=== PATIENT | male | born 1965 | race Caucasian/White ===

== ENCOUNTER 2025-06-17 14:58 | Outpatient (AMB) | payer BC, SELFPAY ==
--- NOTE | 2025-06-17 15:05 | MHC.PC.OV ---
Vital Signs 06/17/25 15:07 Height 5 ft 10.47 in Weight 202 lb BMI 28.6 BP 125/59 L Blood Pressure Location Rt brachial Position Sitting Respiration 14 Pulse 86 Pulse Source Pulse Oximeter Temp 97.7 F Temp Source Temporal Artery Scan Pulse Oximetry (%) 96 Oxygen Delivery Method Room Air Intake Visit Reasons: [facility]/ Dr. Obrien Emergency Technician Required: No Accompanied by: Self / Same As Patient Allergies No Known Allergies Allergy (Verified 06/17/25 15:06) Tobacco use date assessed: 06/17/25 Dental Screening Dental Screen Date: 06/17/25 Did you have a dental visit in the last 12 months?: Yes Did you have a dental problem in the last 6 months where you did not have access to dental care?: No Was dental information given to patient?: Patient has dentist HPI HPI Comments History of Present Illness Details History of Present Illness - The patient is a 59-year-old male presenting to [facility] as he is transferring from another provider, and he denies any current health concerns. - The patient has a history of melanoma on his arm, which was treated with surgery including lymph node removal. - The melanoma had not spread, and he requires a referral for his six-month dermatology follow-up as his previous one with an insurance change. - He reports a history of erectile dysfunction and requests a new prescription for medication. - He also has a history of anxiety, for which he has Ativan, but he has not taken it in approximately two months. - For health maintenance, the patient's last blood work was a year ago or more. - His last colonoscopy was on July 28, 2016, when he was 50 years old. - He has never received a flu shot. - He is a non-smoker. - Past surgical history includes cataract surgery last year, and he no longer wears glasses. - He also had tubes placed in his ears as a child and a hole put in his eardrum, resulting in slightly diminished hearing in that ear without significant functional impact. 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 - Tobacco Use: The patient is a non-smoker. Results - Tests and Diagnostics: Colonoscopy performed on July 28, 2016. [facility] Medical History (Updated 06/17/25 @ 15:31 by Nikos Oneill MD) Malignant melanoma Surgical History History of colonoscopy (~07/28/16) Family History (Updated 06/17/25 @ 15:14 by EMILIA Gomez) Father Melanoma Mother Diabetes Social History (Updated 06/17/25 @ 15:15 by EMILIA Gomez) Housing: House Alcohol intake: current Alcohol intake frequency: a few times a week Patient Tobacco Use Status: Never used Tobacco service: No Current occupational status: employed Cognitive needs: No Hearing needs: No Vision needs: No Questionnaire PHQ-9 Over the last 2 weeks, how often have you been bothered by any of the following problems? 1. Little interest or pleasure in doing things: not at all 2. Feeling down, depressed, or hopeless: not at all 3. Trouble falling or staying asleep, or sleeping too much: not at all 4. Feeling tired or having little energy: not at all 5. Poor appetite or overeating: not at all 6. Feeling bad about yourself - or that you are a failure or have let yourself or your family down: not at all 7. Trouble concentrating on things, such as reading the newspaper or watching television: not at all 8. Moving or speaking so slowly that other people could have noticed. Or the opposite - being so fidgety or restless that you have been moving around a lot more than usual: not at all 9. Thoughts that you would be better off or of hurting yourself in some way: not at all Total score: 0 Source: Developed by Drs. Carlos Artis, Aubrie Sellers, Emery Cuba and colleagues, with an educational clare from [employer]. Thrive Questionnaire Date Thrive assessed: 06/17/25 I am a: Patient What is your living situation today?: I have a steady place to live Within the past 12 months, did the food you bought not last and you didn't have the money to get more?: Never true Within the past 12 months, did you worry whether your food would run out before you got money to buy more?: Never true Do you have trouble paying for medicines?: No Do you have trouble getting transportation to medical appointments?: No Do you have trouble paying your heating and electricity bill?: No Do you have trouble taking care of your child, family member or friend?: No Do you have trouble with day-to-day activities such as bathing, preparing meals, shopping, managing finances, etc.?: No Are you currently unemployed and looking for a job?: No Are you interested in more education?: No Please select the resources that you would like help with: None THRIVE Score: 0 AUDIT C Alcohol Use Questionnaire (AUDIT-C) 1. How often do you have a drink containing alcohol?: 2-3 times a week 2. How many drinks containing alcohol do you have on a typical day when you are drinking?: 1 or 2 3. How often do you have six or more drinks on one occasion?: Never Total Score: 3 AMY-7 AMB Questionnaire AMY-7 Date AMY - 7 assessed: 06/17/25 Feeling nervous, anxious, or on edge: 0 = Not at all Not being able to stop or control worryin = Not at all Worrying too much about different things: 0 = Not at all Trouble relaxin = Not at all Being so restless that it is hard to sit still: 0 = Not at all Becoming easily annoyed or irritable: 0 = Not at all Feeling afraid as if something awful might happen: 0 = Not at all Total AMY-7 score (0-4 normal; 5-9 mild; 10-14 moderate; 15-21 severe): 0 Source: Developed by Drs. Carlos Artis, Aubrie Sellers, Emery Cuba and colleagues, with an educational clare from [employer]. Review of Systems Narrative Review of Systems - General: Denies any health concerns. - Eyes: Reports history of cataract surgery. Denies halos while driving. - Ears: Reports slightly decreased hearing in one ear. Denies functional impairment and can use the phone in both ears. - Genitourinary: Reports erectile dysfunction. Denies nocturia or other urinary issues. - Neurological: Reports good sleep. Physical exam (Primary Care) Vital Signs: Last Vital Signs Temp 97.7 F 06/17/25 15:07 Pulse 86 06/17/25 15:07 Resp 14 06/17/25 15:07 BP 125/59 L 06/17/25 15:07 Pulse Ox 96 06/17/25 15:07 Oxygen Delivery Method Room Air 06/17/25 15:07 BMI result Body Mass Index 28.6 Tobacco/Smoking Status: Tobacco use Status Tobacco use date assessed 06/17/25 06/17/25 15:15 Patient Tobacco Use Status Never used Tobacco 06/17/25 15:15 PHQ-9: PHQ-9 Score PHQ-9: Total score 0 06/17/25 15:15 Thrive Assessment: Date of Thrive Assessment Date Thrive assessed 06/17/25 06/17/25 15:15 Narrative Physical Exam General: Cooperative and healthy appearing Nutritional Appearance: Well nourished Orientation/consciousness: Patient oriented x3 Limitations: No limitations Head: Normal to inspection General: Appearance normal, both eyes and all related structures Neck: Normal visual inspection Chest: Normal palpation of entire chest wall Respiratory: Normal respiratory effort Neurology: Patient oriented x3 Office Procedures Flu Questionnaire Does the patient have a severe egg allergy?: No Does the patient have severe life threatening allergies?: No Does the patient have a fever or illness today?: No Has the patient ever had Guillain-Montfort Syndrome?: No Has the patient ever had any past reaction to a flu shot?: No Immunizations Fluarix [id number] (PF) 45 mcg (15 mcg x 3)/0.5 mL IM syringe Performing Provider: Nikos Oneill MD [facility] Documented (not given) by: EMILIA Gomez on 06/17/25 15:15 Reason Not Given: Patient Refused Coding Level of Care Code New Pt Level 4 (82016) Complex EM visit Add On G2211 Diagnoses Malignant melanoma C43.9 Assessment & Plan Assessment & Plan (1) Malignant melanoma: Code(s): C43.9 - Malignant melanoma of skin, unspecified Category: Medical Plan: History of Present Illness - The patient is a 59-year-old male presenting to [facility] as he is transferring from another provider, and he denies any current health concerns. - The patient has a history of melanoma on his arm, which was treated with surgery including lymph node removal. - The melanoma had not spread, and he requires a referral for his six-month dermatology follow-up as his previous one with an insurance change. - He reports a history of erectile dysfunction and requests a new prescription for medication. - He also has a history of anxiety, for which he has Ativan, but he has not taken it in approximately two months. - For health maintenance, the patient's last blood work was a year ago or more. - His last colonoscopy was on July 28, 2016, when he was 50 years old. - He has never received a flu shot. - He is a non-smoker. - Past surgical history includes cataract surgery last year, and he no longer wears glasses. - He also had tubes placed in his ears as a child and a hole put in his eardrum, resulting in slightly diminished hearing in that ear without significant functional impact. 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 - Tobacco Use: The patient is a non-smoker. Review of Systems - General: Denies any health concerns. - Eyes: Reports history of cataract surgery. Denies halos while driving. - Ears: Reports slightly decreased hearing in one ear. Denies functional impairment and can use the phone in both ears. - Genitourinary: Reports erectile dysfunction. Denies nocturia or other urinary issues. - Neurological: Reports good sleep. Physical Exam General: Cooperative and healthy appearing Nutritional Appearance: Well nourished Orientation/consciousness: Patient oriented x3 Limitations: No limitations Head: Normal to inspection General: Appearance normal, both eyes and all related structures Neck: Normal visual inspection Chest: Normal palpation of entire chest wall Respiratory: Normal respiratory effort Neurology: Patient oriented x3 Results - Tests and Diagnostics: Colonoscopy performed on July 28, 2016. Plan - Will order fasting blood work, to include a cholesterol panel. - Will provide a referral to [facility] in [place] for continued surveillance of his history of melanoma. - Will prescribe sildenafil 50 mg, 8 tablets per month, to be taken one hour prior to sexual activity as needed for erectile dysfunction. - Patient advised he is due for a screening colonoscopy. - The patient was advised to continue to hold taking Ativan for anxiety as he has not needed it. - Will follow up with the patient via phone call to discuss lab results. - Plan to follow up in the office in six months. Discussion Notes I discussed with the patient the plan for his care, including routine health maintenance. I explained the need for fasting blood work to obtain an accurate cholesterol level and provided instructions on where to complete this. We discussed his request for a referral to dermatology for his melanoma history and a new prescription for erectile dysfunction, both of which I will provide. I will call him with his blood work results and plan to see him for a follow-up visit in six months. Patient Instructions - Please go to either [facility] or [facility] to have your blood drawn. - This needs to be a fasting test, so do not eat or drink anything after midnight the night before the test. - You do not need an appointment for the blood test. - A referral will be sent to [facility] for your follow-up appointment. - A new prescription for sildenafil 50 mg (generic Viagra) will be sent to your pharmacy. Take one pill one hour before sexual activity as needed. Your insurance will likely cover 8 pills per month. - We will call you with your blood test results. - Please schedule a follow-up appointment in six months. Plan Plan - Will order fasting blood work, to include a cholesterol panel. - Will provide a referral to [facility] in [place] for continued surveillance of his history of melanoma. - Will prescribe sildenafil 50 mg, 8 tablets per month, to be taken one hour prior to sexual activity as needed for erectile dysfunction. - Patient advised he is due for a screening colonoscopy. - The patient was advised to continue to hold taking Ativan for anxiety as he has not needed it. - Will follow up with the patient via phone call to discuss lab results. - Plan to follow up in the office in six months. Discussion Notes I discussed with the patient the plan for his care, including routine health maintenance. I explained the need for fasting blood work to obtain an accurate cholesterol level and provided instructions on where to complete this. We discussed his request for a referral to dermatology for his melanoma history and a new prescription for erectile dysfunction, both of which I will provide. I will call him with his blood work results and plan to see him for a follow-up visit in six months. Patient Instructions - Please go to either [facility] or [facility] to have your blood drawn. - This needs to be a fasting test, so do not eat or drink anything after midnight the night before the test. - You do not need an appointment for the blood test. - A referral will be sent to [facility] for your follow-up appointment. - A new prescription for sildenafil 50 mg (generic Viagra) will be sent to your pharmacy. Take one pill one hour before sexual activity as needed. Your insurance will likely cover 8 pills per month. - We will call you with your blood test results. - Please schedule a follow-up appointment in six months. Orders: Orders Basic Metabolic Panel Today E78.5 - Hyperlipidemia, unspecified Complete Blood Count no Diff Today E78.5 - Hyperlipidemia, unspecified Thyroid Stimulating Hormone Today E78.5 - Hyperlipidemia, unspecified UA and rflx microscopic Today E78.5 - Hyperlipidemia, unspecified Prostate Specific Antigen Scr Today E78.5 - Hyperlipidemia, unspecified Influenza [id number] Immunization Today Z23 - Encounter for immunization Lipid Panel Today E78.5 - Hyperlipidemia, unspecified Liver Panel Today E78.5 - Hyperlipidemia, unspecified Referrals Dermatology Referral C43.9 - Malignant melanoma of skin, unspecified Medications: New sildenafil (Viagra) administer 30 minutes to 4 hours before activity 50 mg PO DAILY PRN 8 tabs 1RF sexual activity
[2025-06-17 15:07] VITALS: BP 125/59; PULSE 86; RESP 14; TEMP 36.5; O2SAT 96; BMI 28.6
== END 2025-06-17 15:35 | disposition home or self-care (01) ==
LOC: HO.HMCSH 14:58
PROVIDERS: PCP Internal Medicine; Visit Provider Internal Medicine
DX: Z23 Encounter for immunization (principal); C43.9 Malignant melanoma of skin, unspecified

== ENCOUNTER → 2025-06-17 14:58 | Outpatient (BNVA) | payer BC, SELFPAY | PROVIDERS: PCP Internal Medicine; Visit Provider Internal Medicine | DX: N52.9 Male erectile dysfunction, unspecified (principal); F41.9 Anxiety disorder, unspecified; E78.5 Hyperlipidemia, unspecified; Z85.820 Personal history of malignant melanoma of skin; Z28.21 Immunization not carried out because of patient refusal | CPT/HCPCS: 90471; 96127 ==